=== PATIENT | male | born 1970 | race Caucasian/White ===

== ENCOUNTER 2023-02-03 14:45 | Emergency (ER) | payer OTHER ==
[~2023-02-03] VITALS: Ht 165.1 cm; Wt 120.7 kg
[~2023-02-03 14:45] MED LIST: BACTRIM DS 8001 TA1 PO; CEFDINIR300 MG PO; CIPRO500 MG PO; CLARITIN10 MG PO; DOXYCYCLINE MO100 MG PO; FLOMAX0.4 MG PO; FLONASE ALLERG9.9 ML NAS; HYDROCODONE; HYDROCODONE BIT1 T11 PO; INDOMETHACIN50 MG PO; MEDROL DOSEPAK4 MG PO; MOTRIN800 MG PO; NAPROSYN500 MG PO; NKHM; NORCO 10-325 T1 EACH PO; NORCO 325 MG-51 TAB PO; NORCO 5-325 TA1 EACH PO; PREDNISONE10 MG PO; ROBITUSSIN AC 110 ML PO; TRAMADOL HCL50 MG PO; VENTOLIN H0.09 MG/AC INH; ZOFRAN ODT4 MG SL
== END 2023-02-03 16:15 | disposition home or self-care (01) ==
LOC: ED 14:45
DX: U07.1 COVID-19 (principal); M10.9 Gout, unspecified; Z91.011 Allergy to milk products; Z90.49 Acquired absence of other specified parts of digestive tract; Z98.890 Other specified postprocedural states

== ENCOUNTER 2024-10-02 00:02 | Emergency (ER) | payer SELFPAY ==
[~2024-10-02] VITALS: Ht 162.5 cm; Wt 127.0 kg
[2024-10-02] MEDS ORDERED: Ondansetron Hydrochloride 4 MG/2 ML VIAL IV ONE (00:30)
[2024-10-02 02:36] LABS: BILIRUBIN Negative (Negative); BLOOD 3+ (Negative); CLARITY Clear (Clear); COLOR Yellow (Yellow); KETONE Negative (Negative); LEUKO ESTERASE Negative (Negative); NITRITE Negative (Negative); PH 5.5 (4.5-8.0); SPECIFIC GRAVITY 1.020 (1.001-1.030); UROBILINOGEN 1.0 E.U./dl (0.0-1.0)
[2024-10-02 02:49] LABS: BACTERIA TRACE; MUCOUS TRACE; RBC TNTC rbc/hpf (0-2)
== END 2024-10-02 04:37 | disposition home or self-care (01) ==
LOC: ED 00:02
PROVIDERS: Internal Medicine
DX: N21.0 Calculus in bladder (principal); R11.2 Nausea with vomiting, unspecified; Z87.442 Personal history of urinary calculi; Z91.011 Allergy to milk products; Z79.899 Other long term (current) drug therapy; Z90.49 Acquired absence of other specified parts of digestive tract